=== PATIENT | female | born 1970 | race African-American/Black ===

== ENCOUNTER 2021-03-08 11:23 | Emergency (ER) | payer OTHER ==
[~2021-03-08] VITALS: Ht 165.1 cm; Wt 83.9 kg
[2021-03-08] MEDS ORDERED: KETOROLAC TROMETHAMINE 30 MG/ML VIAL IV STA (12:25)
[2021-03-08] MEDS ORDERED: ONDANSETRON HCL INJ 2MG/ML 2ML 2 MG/ML VIAL IV STA (12:29)
[2021-03-08] MEDS ORDERED: SODIUM CHLORIDE 0.9% 1000ML 1,000 ML IV SCH (12:30)
[2021-03-08] MEDS ORDERED: SODIUM CHLORIDE 0.9% 50ML 50 ML ONE (12:45)
[2021-03-08] MEDS ORDERED: IOPAMIDOL 370 MG/ML 200 ML INFUS..BTL INJ ONE (12:45)
[2021-03-08] MEDS ORDERED: KETOROLAC TROMETHAMINE 30 MG/ML VIAL ONE (12:54)
[2021-03-08] MEDS ORDERED: SODIUM CHLORIDE 0.9% 1000ML 1,000 ML ONE (12:54)
[2021-03-08] MEDS ORDERED: ONDANSETRON HCL INJ 2MG/ML 2ML 2 MG/ML VIAL ONE (12:54)
[2021-03-08] MEDS ORDERED: PROMETHAZINE HC25 M1 PO (14:18)
[2021-03-08] MEDS ORDERED: CYCLOBENZAPRINE10 MG PO (14:28)
[2021-03-08] MEDS ORDERED: FAMOTIDINE40 MG PO (14:29)
== END 2021-03-08 15:24 | disposition home or self-care (01) ==
LOC: FSED 11:30
DX: S00.83XA Contusion of other part of head, initial encounter (principal); R10.84 Generalized abdominal pain; R11.2 Nausea with vomiting, unspecified; W18.09XA Striking against other object with subsequent fall, initial encounter; Y93.01 Activity, walking, marching and hiking; K21.9 Gastro-esophageal reflux disease without esophagitis; M54.30 Sciatica, unspecified side
CPT/HCPCS: 70450; 74177; 80053; 81003; 81025; 85025; 99284; J1885; J2405; J7030; Q9967

== ENCOUNTER 2021-05-14 11:18 | Emergency (ER) | payer OTHER ==
[~2021-05-14] VITALS: Ht 165.1 cm; Wt 81.6 kg
[~2021-05-14 11:18] MED LIST: CYCLOBENZAPRINE10 MG PO; FAMOTIDINE40 MG PO; PROMETHAZINE HC25 M1 PO
[2021-05-14] MEDS ORDERED: KETOROLAC TROMETHAMINE 30 MG/ML VIAL IV STA (11:33)
[2021-05-14] MEDS ORDERED: IBUPROFEN600 MG PO (12:26)
[2021-05-14] MEDS ORDERED: KETOROLAC TROMETHAMINE 30 MG/ML VIAL ONE (12:27)
[2021-05-14 12:32] VITALS: BP 120/95
== END 2021-05-14 12:32 | disposition home or self-care (01) ==
LOC: FSED 11:24
DX: R09.1 Pleurisy (principal); K21.9 Gastro-esophageal reflux disease without esophagitis; Z85.41 Personal history of malignant neoplasm of cervix uteri
CPT/HCPCS: 71045; 80053; 82553; 84484; 85025; 85379; 93005; 99284; J1885

== ENCOUNTER 2022-02-25 21:16 | Emergency (ER) | payer OTHER ==
[~2022-02-25] VITALS: Ht 165.1 cm; Wt 81.6 kg
[~2022-02-25 21:16] MED LIST changes: +IBUPROFEN600 MG PO
[2022-02-25] MEDS ORDERED: ONDANSETRON HCL 4 MG ORAL DISINTEGRATING TAB PO ONE (23:00)
== END 2022-02-25 23:35 | disposition home or self-care (01) ==
LOC: FSED 21:30
DX: R19.5 Other fecal abnormalities (principal); R11.0 Nausea; K21.9 Gastro-esophageal reflux disease without esophagitis; Z85.41 Personal history of malignant neoplasm of cervix uteri
CPT/HCPCS: 80048; 80076; 81003; 85025; 99283; Q0162